=== PATIENT | female | born 1965 | race African-American/Black ===

== ENCOUNTER 2022-07-19 16:52 | Emergency (ER) | payer OTHER, SELFPAY ==
--- NOTE | ~2022-07-19 | CT_ITS ---
EXAMINATION: CT abdomen pelvis w con DATE: 07/19/2022 20:34 INDICATION: Right lower quadrant pain TECHNIQUE: Computed tomography (CT) of the abdomen and pelvis was performed with 100 cc Omnipaque 350 intravenous contrast. The dose-length product was 1482.43 mGy-cm. Automated exposure control and ite rative reconstruction technique were employed. COMPARISON: None. FINDINGS: Lung bases are unremarkable. Heart size normal. No significant pleural or pericardial effus ion. There are surgical changes consistent with gastric bypass and small bowel anastomosis. Nonobstructive bowel pattern. Status post cholecystectomy with expected prominence of the bile ducts. The spleen, pancreas, adrenal glands and left kidney are unremarkable. There are subcentimeter hypod ensities of the right kidney, too small to characterize, although likely benign. No significant vascu lar abnormality. No lymphadenopathy. There is endometrial prominence which is likely abnormal in a po stmenopausal age female. No free air or free fluid. No acute osseous abnormality. Nonobstructive allison l pattern. IMPRESSION: 1. Endometrial prominence which is likely abnormal in a postmenopausal age female. 2: No acute abdominal abnormality. Reviewed, dictated and finalized at location A. IMPRESSION: 1. Endometrial prominence which is likely abnormal in a postmenopausal age fema le. 2: No acute abdominal abnormality.
--- NOTE | ~2022-07-19 | US_ITS ---
EXAMINATION: US pelvic complete w TV DATE: 07/19/2022 23:56 INDICATION: Postmenopausal prominence of the endometrium. Comparison:No prior studies for comparison. TECHNIQUE: Multiple transabdominal and endovaginal sonographic images of the pelvis performed. FINDINGS: The uterus measures 6.3 x 3.7 x 5.1 cm. The endometrial complex measures 3 mm. The right ovary measures 1.8 x 1.7 x 1.1 cm and the left ovary measures 2.5 x 2.1 x 1.6 cm. There ar e small follicles in each ovary. Normal doppler signal in both ovaries. There is no free fluid in the pelvis. There are no abnormal masses seen on either side. IMPRESSION: 1. Unremarkable pelvic ultrasound. Reviewed, dictated and finalized at location A.
[2022-07-19 16:56] VITALS: BP 148/71; PULSE 90; RESP 18; TEMP 36.6; O2SAT 100
[2022-07-19 17:16] LABS: Basophils Percent Auto 0.3 % (0.2-1.2); Eosinophils Absolute Auto 0.1 K/mm3 (0-0.3); Eosinophils Percent Auto 1.2 % (0-4.4); Hematocrit 36.7 % (37.0-47.0); Hemoglobin 11.5 g/dL (12.0-15.0); Immature Granulocyte Absolute 0.01 K/mm3 (0.00-0.031); Immature Granulocyte Percent A 0.2 % (0-0.5); Lymphocytes Absolute Auto 2.17 K/mm3 (0.9-3.2); Lymphocytes Percent Auto 36.7 % (18.3-44.2); Mean Corpuscular HGB Conc 31.3 g/dl (32-36); Mean Corpuscular Hemoglobin 26.4 pg (26-34); Mean Corpuscular Volume 84.4 fl (80-100); Mean Platelet Volume 9.1 fl (7.4-10.4); Monocytes Absolute Auto 0.6 K/mm3 (0.1-0.6); Neutrophils Absolute Auto 3.1 K/mm3 (1.3-6.7); Neutrophils Percent Auto 51.6 % (45.5-73.1); Platelet Count Result 214 k/mm3 (150-375); Red Blood Count 4.35 M/mm3 (4.2-5.4); Red Cell Distribution Width 13.6 % (11.5-14.5); White Blood Count 5.9 K/mm3 (4.5-10.0)
[2022-07-19 17:26] LABS: Alanine Aminotransferase 27 U/L (6-35); Albumin Level 4.4 g/dL (3.5-5.1); Alkaline Phosphatase 129 U/L (38-126); Anion Gap 4 mmol/L (8-16); Aspartate Amino Transferase 27 U/L (14-36); Bilirubin,Total 1.2 mg/dL (0.2-1.3); Blood Urea Nitrogen 10 mg/dL (7-17); Calcium 9.2 mg/dL (8.4-10.2); Carbon Dioxide 31 mmol/L (22-30); Chloride 100 mmol/L (98-107); Estimated CRCL calculation 103 ml/min; Estimated Glomerular Filt Rate > 60; Glucose 104 mg/dL (65-110); Lipase 91 U/L (23-300); Potassium 4.1 mmol/L (3.4-5.0); Sodium 135 mmol/L (137-145)
[2022-07-19 17:27] LABS: Appearance Urine Cloudy (Clear); Bacteria Urine 1+ /hpf; Bilirubin Urine 1+ (Negative); Blood Urine Negative (Negative); Color Urine Dark Yellow (Yellow); Glucose Urine UA Negative (Negative); Ketones Urine Trace mg/dL (Negative); Leukocyte Esterase Ur 2+ LEU/UL (Negative); Nitrate Urine Negative (Negative); Protein Urine Trace mg/dL (Negative); RBC Urine 0-2 /hpf (0-2); Specific Grav Ur 1.027 (1.001-1.035); Squamous Epithelial Cell Urine Few /hpf (Few); WBC Urine 21-50 /hpf
[2022-07-19 17:49] LABS: Add Urine Microscopic? YES
[2022-07-19 18:18] VITALS: BP 108/73; PULSE 73; RESP 12; O2SAT 98
--- NOTE | 2022-07-19 18:37 | ED.ABDPAIN ---
HPI - Abdominal Pain General Chief Complaint: Abdominal Pain <ALLEN Correia Last Filed: 07/20/22 03:41> Stated Complaint: Abdominal Pain <ALLEN Correia Last Filed: 07/20/22 03:41> Time Seen by Provider: 07/19/22 17:38 <ALLEN Correia Last Filed: 07/20/22 03:41> Source: patient <ALLEN Correia Last Filed: 07/20/22 03:41> Mode of arrival: ambulatory <ALLEN Correia Last Filed: 07/20/22 03:41> Limitations: no limitations <ALLEN Correia Last Filed: 07/20/22 03:41> History of Present Illness HPI narrative: Patient is a 57 y/o female, with PMHx of gastric bypass surgery, who presents to the ED with c/o RLQ abdominal pain. Patient reports the pain began 2 days ago and has been fairly constant and worsening since then. She states the pain is worse with movements, twisting, taking deep breaths. She has been taking Tylenol for the pain with minimal relief. She denies any nausea, vomiting, diarrhea, constipation, rectal bleeding, melena, urinary sx's, fevers. Patient has never had pain like this before. She is postmenopausal. Last cycle over 1 year ago. She did states she had some cramping in her lower abdomen, like she experienced with previous cycles, but denies vaginal bleeding, discharge. <ALLEN Correia Last Filed: 07/20/22 03:41> Related Data Allergies/Adverse Reactions: Allergies Allergy/AdvReac Type Severity Reaction Status Date / Time Penicillins Allergy Hives Verified 07/19/22 17:01 Sulfa (Sulfonamide Allergy Hives Verified 07/19/22 17:01 Antibiotics) <ALLEN Correia Last Filed: 07/20/22 03:41> Review of Systems Review of Systems: CONSTITUTIONAL: Denies fever, chills, or sweats. CARDIOVASCULAR: Denies chest pain. RESPIRATORY: Denies dyspnea. GASTROINTESTINAL: See HPI. GENITOURINARY: Denies dysuria or hematuria. SKIN: Denies rash or itching. <Lizeth Hughes PA-C - Last Filed: 07/20/22 03:41> All systems reviewed & are unremarkable except as noted in HPI and below <Lizeth Hughes PA-C - Last Filed: 07/20/22 03:41> [facility] Past Medical History Medical History: Medical History (Updated 07/20/22 @ 03:38 by Lizeth Hughes PA-C) Arthritis Hypertension <Lizeth Hughes PA-C - Last Filed: 07/20/22 03:41> Surgical History Surgical History: Surgical History (Updated 07/19/22 @ 18:58 by Lizeth Hughes PA-C) History of gastric bypass <Lizeth Hughes PA-C - Last Filed: 07/20/22 03:41> Social History Social History: Social History (Updated 07/19/22 @ 18:58 by Lizeth Hughes PA-C) Smoking status: Never smoker <Lizeth Hughes PA-C - Last Filed: 07/20/22 03:41> Exam Narrative: GENERAL: Well appearing, obese, non-toxic, in no acute distress. HEAD: Normocephalic, atraumatic. NECK: Supple. No adenopathy, no masses. RESPIRATORY: Airway patent, respirations nonlabored. Clear to auscultation bilaterally, no rales, rhonchi, wheezing. CARDIOVASCULAR: Regular rate and rhythm without murmurs, rubs, or gallops. Radial pulses 2+ and equal bilaterally. ABDOMINAL: Soft, tenderness throughout epigastric, right upper quadrant, right lower quadrant, suprapubic region, no rebound. Nondistended, no hepatosplenomegaly. Normoactive BS. MUSCULOSKELETAL: Moves all extremities. Strength/ROM intact without gross deformities. SKIN: Warm, dry, normal color. No rashes. NEURO: A&O X3. Speech clear. Cranial nerves II-XII grossly intact. Steady gait. No ataxic movements. PSYCHIATRIC: Appropriate mood and affect. Normal interaction. <Lizeth Hughes PA-C - Last Filed: 07/20/22 03:41> Course COLLECT ON DELIVERY CLERK/PA Physician Supervision This is a was performed by both a physician and an APC. I performed all aspects of the MDM as documented w/ the following additions: 57-year-old female presenting with abdominal pain. L
[2022-07-19 19:02] VITALS: BP 127/59; PULSE 80; RESP 12; O2SAT 98
--- NOTE | 2022-07-19 19:24 | PC.NURSE ---
Report received from TEMI Rene. Assumed care of patient at this time.
--- NOTE | 2022-07-19 19:41 | PC.NURSE ---
This nurse attempted IV, unsuccessful. Patient states she normally has US IV placed, including last week. tree and shrub worker in room attempting US IV placement.
[2022-07-19] MEDS: SODIUM CHLORIDE 0.9% IV 1,000 ML 999 ML IV CONT (20:15)
--- NOTE | 2022-07-19 20:19 | PC.NURSE ---
Patient taken to CT at this time.
[2022-07-19 20:41] VITALS: BP 108/56; PULSE 80; RESP 17; O2SAT 98
[2022-07-19 22:00] VITALS: BP 110/74; PULSE 81; RESP 17; O2SAT 99
[2022-07-20 01:12] VITALS: BP 120/63; PULSE 71; RESP 17; O2SAT 100
[2022-07-20] MEDS: CEPHALEXIN 500 MG CAPSULE PO (04:05)
[2022-07-20 04:43] VITALS: BP 138/78; PULSE 71; RESP 16; O2SAT 98
== END 2022-07-20 04:44 | disposition home or self-care (01) ==
PROVIDERS: Emergency Medicine; Emergency Provider Physician Assistant
DX: N30.00 Acute cystitis without hematuria (principal); R93.89 Abnormal findings on diagnostic imaging of other specified body structures; R10.31 Right lower quadrant pain; I10 Essential (primary) hypertension; M19.90 Unspecified osteoarthritis, unspecified site; Z98.84 Bariatric surgery status
CPT/HCPCS: 36415; 74177; 76830; 76856; 80053; 81001; 83690; 85025; 87086; 96361; 96365; 99284; A9270; J0131; J7030; Q9967